=== PATIENT | male | born 1960 | race Caucasian/White ===

== ENCOUNTER 2018-06-27 10:51 | Inpatient (IN) | payer BC, OTHER ==
[~2018-06-27] VITALS: Ht 177.8 cm; Wt 79.4 kg
--- NOTE | 2018-06-27 14:00 | NUR ---
Pre-assessment Note Pre-Assessment done at intake office, client is a/o x 4, he presents with flat affect, anxious mood, restless, flushed face, and difficulty concentrating. Client is wearing clean clothes, appropriate for the weather, he appears wellnourished. Client avoids eye contact, he answers questions in a soft, rapid speech, client is emotional at times. T 97.8 , RR 16, HR 85, BP 141/88, spO2 @ 95% on RA, no pain. He is fully ambulatory. He reports no known allergy. Client verbalized understanding of disposal of unidentifiable pills and controlled medications, unit protocol regarding vital signs Q4H, blood drawn, and urine drug test.
--- NOTE | 2018-06-27 14:37 | NUR ---
Admission Note Client stated, "I am an alcoholic, I need help." Client is a 57 year old male, arrived on the unit at 1437. Client has a steady gait. Admitted for medically supervised alcohol withdrawal. Client reports smoking cigarettes 1/2 pack for more than 30 years. Client is a/o to name, place, time, and situation. He appears anxious and preoccupied. Client is oriented to unit, educated about protocols and how to work TV and call light in his room. Weigh: 175 pounds. Height: 5'10" Client reports the following symptoms when not consuming alcohol, "I get very angry, depressed, I do not eat, shaky, anything and everything bothers me." CIWA 4 Client substance use: Alcohol (Wine), first time use at age 22 in social gatherings, "my problem started 7 years ago, when I had to have a drink of alcohol every single day, now I drink a whole bottle of wine." 1 bottle of wine = 750mL. Last used 06/23/18 @ 1000 2 glasses (5 0z), 300mL. Client has scattered scaly rash on bilateral arms, x 1 on chest (psoriasis). Bilateral lung clear on auscultation, abdomen soft, non-tender, no edema noted. Client denies any history of withdrawal induces seizure, withdrawal induced delirium, and no blackouts. Client reports past medical history: Anxiety (self-diagnosed), depression (Self-diagnosed), Acid reflux (Zantac 150mg PO daily), Heart attack x 2 last (September 2015) (Aspirin 81mg PO daily, Carvedilol 3.125mg PO BID, Atorvastatin 40mg PO HS, Ezetimibe 10mg PO HS, Brilinta 60g PO BID), psoriasis (2007) no medications at this time, he usually use it only during the summer, cataracts (Jun 2017) (Latanoprost opth norma 0.005% 125/2.5mL one drop to each eye at night time). Past surgical hx: Angioplasty x 2 (Jun 2007), (September 2015). Client denies any history of involuntary psychiatric hospitalization, no history of suicidal/homicidal ideation. Client reports no allergy to medication or food, but prefers not to eat cheese and a Kosher diet, full code ordered. Client declines PNA /FLU vaccine, stating, "I will get them somewhere else, y main concern now is getting clearance from you guys, so I can continue with my treatment." Client verbalized consent for HIV test. Client reports living with his and her daughter. Client reports no history of prior treatments. Client's longest period of sobriety is for 5 months after his angioplasty on September 2015 until the end of January 2016. Client stated, the reason why he drinks is because he gets very angry, and drinking helps him relax, he said, "I know I have depression and anxiety and the wine used to make me feel better, until recently, I don't get the same relating feeling that I used to." Client stated, "I need to go into treatment, otherwise I am afraid, I will lose my job, my family and my health will get worst." Dr. Richter notified of client's admission. Client provided urine for urine drug screen. All safety measures instituted. [place] precaution. Call light within reach. Will continue to monitor.
[2018-06-27 15:15] LABS: *AMPHETAMINE, URINE NEGATIVE (NEGATIVE); *BARBITURATE, URINE NEGATIVE (NEGATIVE); *CANNABINOID, URINE NEGATIVE (NEGATIVE); *COCCAINE, URINE NEGATIVE (NEGATIVE); *OPIATE, URINE NEGATIVE (NEGATIVE); *PHENCYCLIDINE SCREEN,URINE NEGATIVE (NEGATIVE)
[2018-06-27] MEDS ORDERED: ATOR40TA PO (16:50)
[2018-06-27] MEDS ORDERED: CARV3.122 PO (16:50)
[2018-06-27] MEDS ORDERED: ASPI81TA31 PO (16:50)
[2018-06-27] MEDS ORDERED: LATA2.5D7 OP (16:50)
[2018-06-27] MEDS ORDERED: TICA60TA PO (16:50)
[2018-06-27] MEDS ORDERED: RANI150T43 PO (16:50)
[2018-06-27] MEDS ORDERED: EZET1TAB63 PO (16:50)
[2018-06-27 16:55] VITALS: BP 137/83
[2018-06-27] MEDS ORDERED: ONDANSETRON 4 MG/2 ML VIAL IM PRN (17:30)
[2018-06-27] MEDS ORDERED: CLONIDINE HCL 0.1 MG TABLET PO PRN (17:30)
[2018-06-27] MEDS ORDERED: MIRALAX 17 GM POWD.PACK PO PRN (17:30)
[2018-06-27] MEDS ORDERED: MAG HYDROX/AL HYDROX/SIMETH 30 ML LIQUID UDC PO PRN (17:30)
[2018-06-27] MEDS ORDERED: LORAZEPAM 1 MG TABLET PO PRN ×2 (17:30)
[2018-06-27] MEDS ORDERED: LOPERAMIDE HCL 2 MG CAPSULE PO PRN ×2 (17:30)
[2018-06-27] MEDS ORDERED: MAGNESIUM HYDROXIDE 30 ML LIQUID UDC PO PRN (17:30)
[2018-06-27] MEDS ORDERED: HYDROXYZINE PAMOATE 25 MG CAPSULE PO PRN (17:30)
[2018-06-27] MEDS ORDERED: IBUPROFEN 600 MG TABLET PO PRN (17:30)
[2018-06-27] MEDS ORDERED: diphenhydrAMINE 50 MG CAPSULE PO PRN (17:30)
[2018-06-27] MEDS ORDERED: ONDANSETRON ODT 4 MG TAB.RAPDIS SL PRN (17:30)
[2018-06-27] MEDS ORDERED: LORAZEPAM 2 MG/1 ML VIAL IM PRN (17:30)
[2018-06-27] MEDS ORDERED: ACETAMINOPHEN 325 MG TABLET PO PRN (17:30)
[2018-06-27] MEDS ORDERED: THIAMINE HCL 200 MG/2 ML VIAL IM ONE (17:30)
[2018-06-27] MEDS ORDERED: ZANTAC 150 MG PO PRN (18:15)
[2018-06-27] MEDS ORDERED: EZET10TA27 PO (18:55)
--- NOTE | 2018-06-27 19:35 | NUR ---
END OF SHIFT Endorse client to incoming nurse, client is in room, a/o x 4. Client continues to present with anxiety and difficulty concentrating. Last CIWA 4 @ 1600. Client consumed 75% of meals. Adequate PO fluid intake 855mL, void x 1. [place] precautions. Call light within reach.
--- NOTE | 2018-06-27 19:40 | NUR ---
START OF SHIFT Pt is a 57 year old male, admitted for medically supervised withdrawal from Alcohol. Pt is A/A/O X 4. He appears anxious and preoccupied. This is his first time in detox. Pt encouraged PO fluid intake as tolerated.Emotional support provided; encouraged to verbalize feelings and concerns. Last CIWA 4 at 1600. All safety measures are in place,call light is within reach,will continue to monitor for safety.
[2018-06-27 20:00] VITALS: BP 134/91
--- NOTE | 2018-06-27 20:00 | NUR ---
CIWA=4 Pt is somewhat anxious and restless d/t being in a new place,stated " I feel fine".
[2018-06-27] MEDS ORDERED: LATANOPROST OPHT DROP 2.5 ML BOTTLE OP SCH (21:00)
[2018-06-27] MEDS ORDERED: ATORVASTATIN 40 MG TABLET PO SCH (21:00)
[2018-06-27 21:05] LABS: BASOPHILS # (AUTO) 0.1 K/uL (0.0-8.0); BASOPHILS % (AUTO) 0.7 % (0.0-2.0); EOSINOPHILS # (AUTO) 0.7 K/uL (0.0-0.7); EOSINOPHILS % (AUTO) 8.3 % (0.0-7.0); HEMATOCRIT 42.4 % (36.7-47.1); HEMOGLOBIN 14.9 g/dL (12.5-16.3); LYMPHOCYTES # (AUTO) 2.2 K/uL (20.0-40.0); LYMPHOCYTES % (AUTO) 26.9 % (20.5-51.5); MEAN CORPUSCULAR HEMOGLOBIN 35.4 uug (23.8-33.4); MEAN CORPUSCULAR HGB CONC 35 g/dL (32.5-36.3); MONOCYTES # (AUTO) 0.8 K/uL (2.0-10.0); MONOCYTES % (AUTO) 9.7 % (0.0-11.0); NEUTROPHILS # (AUTO) 4.4 K/uL (1.8-8.9); NEUTROPHILS % (AUTO) 54.4 % (38.5-71.5); PLATELET COUNT (AUTO) 274 K/uL (152-348); WHITE BLOOD COUNT (AUTO) 8.2 K/uL (3.6-10.2)
[2018-06-27 21:18] LABS: ETHANOL < 3 MG/DL (0-0)
[2018-06-27 21:29] LABS: ALANINE AMINOTRANSFERASE 46 U/L (16-63); ALKALINE PHOSPHATASE 75 U/L (50-136); AMYLASE 90 U/L (25-115); ASPARTATE AMINOTRANSFERASE 31 U/L (15-37); BILIRUBIN,TOTAL 0.3 mg/dL (0.2-1.0); CARBON DIOXIDE 28 mmol/L (21-32); CHLORIDE 100 mmol/L (98-107); CREATININE 1.4 mg/dL (0.6-1.3); GLUCOSE 102 mg/dL (74-106); LIPASE 433 U/L (73-393); MAGNESIUM 2.1 mg/dL (1.8-2.4); TOTAL PROTEIN, SERUM 7.6 g/dL (6.4-8.2); UREA NITROGEN, BLOOD 16 mg/dL (7-18)
[2018-06-27 21:40] LABS: THYROID STIMULATING HORMONE 2.452 mIU/mL (0.358-3.740)
--- NOTE | 2018-06-28 | NUR ---
KARI deferred d/t Pt being asleep,v/s refused.All safety measures in place, call light is within reach,will continue to monitor for safety.
--- NOTE | 2018-06-28 04:00 | NUR ---
KARI deferred d/t Pt being asleep,v/s refused.All safety measures in place, call light is within reach,will continue to monitor for safety.
--- NOTE | 2018-06-28 06:58 | NUR ---
END OF SHIFT Pt is a 57 year old male, admitted for medically supervised withdrawal from Alcohol. Pt is A/A/O X 4. NO PRN meds given.Last CIWA 4 at 1999. Pt slept 7 hours,fluid intake was 930 ml, voided x 2.All safety measures are in place,call light is within reach,will continue to monitor for safety.
--- NOTE | 2018-06-28 07:00 | NUR ---
Start of Shift Notes: Report received from computer laboratory technician nurse. Pts last CIWA was 4. Pt slept for 7 hours. Upon start of shift, pt was awake and watching TV. Pt noted to be anxious about being discharged today. Answered all questions. Pt verbalized understanding. Pt denies any pain at this time. Pt continues with PRN medications. Bed in lowest position. Side rails up x2. Call light functioning and within reach. All needs attended and met. Will continue to monitor.
[2018-06-28 08:00] VITALS: BP 124/77
[2018-06-28] MEDS ORDERED: CARVEDILOL 3.125 MG TABLET PO SCH (08:00)
--- NOTE | 2018-06-28 08:00 | NUR ---
CIWA 4 Pt noted with mild anxiety/agitation. CIWA 4
[2018-06-28 08:22] VITALS: BP 124/77
[2018-06-28] MEDS ORDERED: FOLIC ACID 1 MG TABLET PO SCH (09:00)
[2018-06-28] MEDS ORDERED: [UNRECOGNIZED DRUG - OTHER] PO SCH (09:00)
[2018-06-28] MEDS ORDERED: MULTIVITAMINS,THERAPEUTIC TABLET PO SCH (09:00)
[2018-06-28] MEDS ORDERED: ASPIRIN 81 MG TAB.CHEW PO SCH (09:00)
[2018-06-28] MEDS ORDERED: TUBERCULIN,PURIF.PROT.DERIV. 5 TU/0.1 ML TEST ID ONE (09:00)
[2018-06-28] MEDS ORDERED: THIAMINE HCL 100 MG TABLET PO SCH (09:00)
--- NOTE | 2018-06-28 11:17 | NUR ---
Discharge Note: Pt discharged at 1117. Pt in stable condition during time of discharge. All belongings and valuables returned to pt. Discharge paperwork and education given. Pt verbalized understanding. Pt discharged to [facility].
[2018-06-29 11:15] LABS: HEPATITIS B SURFACE AG Negative (Negative)
== END 2018-06-28 11:19 | disposition other institution (70) | DRG 897 ==
LOC: SRC 12:53
PROVIDERS: ADMIT Family Medicine Addiction Medicine; ATTEND Family Medicine Addiction Medicine
PROC: HZ2ZZZZ Detoxification Services for Substance Abuse Treatment (ICD-10-PCS; principal; 2018-06-27)
DX: F10.20 Alcohol dependence, uncomplicated (principal); Y90.0 Blood alcohol level of less than 20 mg/100 ml; F41.9 Anxiety disorder, unspecified; F32.9 Major depressive disorder, single episode, unspecified; F17.210 Nicotine dependence, cigarettes, uncomplicated; I25.2 Old myocardial infarction; E78.5 Hyperlipidemia, unspecified; L40.9 Psoriasis, unspecified; I10 Essential (primary) hypertension
CPT/HCPCS: 36415; 80307; 83690; 83735; 84443; 85025; 86592; 86705; 86803; 87340; 87806; G0480